=== PATIENT | female | born 1980 | race Caucasian/White ===

== ENCOUNTER → 2017-01-15 | Outpatient (CLI) | payer BC ==
[~2017-01-15] MED LIST: CHOL1CAP30 PO; FRCT/ PO; IMT100 PO; MAGN-22 PO; MAGN1250 PO; MELA1TAB4 PO; MISCCAP80 PO; PANT40TA PO; PROP20TA67 PO
== END | disposition home or self-care (01) ==
LOC: C.PAPS 11:51
PROVIDERS: ATTEND Obstetrics & Gynecology
DX: Z01.419 Encounter for gynecological examination (general) (routine) without abnormal findings (principal)

== ENCOUNTER → 2017-03-19 | Outpatient (CLI) | payer BC ==
[~2017-03-19] MED LIST changes: -CHOL1CAP30 PO; -MAGN-22 PO; -MELA1TAB4 PO; -MISCCAP80 PO; -PANT40TA PO
--- NOTE | 2017-03-19 09:10 | DIAGNOSTIC IMAGING REPORT ---
ABDOMINAL ULTRASOUND, RIGHT UPPER QUADRANT HISTORY: Early satiety. COMPARISON: None. FINDINGS: Hepatic echogenicity is increased. There are no hepatic lesions. There is no biliary ductal dilatation. The common bile duct measures 3 mm in caliber. The pancreas is sonographically normal. There is no gallbladder wall thickening. A small stone is noted within the gallbladder. There is no right hydronephrosis. IMPRESSION: 1. Fatty infiltration of the liver. 2. Small gallstone within the gallbladder. No gallbladder wall thickening. No evidence of acute cholecystitis. 3. No biliary ductal dilatation. Electronically signed by: Inder Noguera M.D. 03/19/2017 9:09 AM Dictated Date/Time: 03/19/2017 9:04 AM
== END | disposition home or self-care (01) ==
LOC: C.ULTR 08:34
PROVIDERS: ATTEND Registered Nurse
DX: R68.81 Early satiety (principal); K76.0 Fatty (change of) liver, not elsewhere classified; K80.20 Calculus of gallbladder without cholecystitis without obstruction

== ENCOUNTER → 2017-03-23 | Outpatient (CLI) | payer BC ==
[2017-03-23 17:51] LABS: BASO % 0.3 %; BASO ABS # 0.02 K/uL (0-0.2); COMPLETE YES; EOS % 3.2 %; HEMATOCRIT 39.4 % (37-47); IG% 0.2 %; LYMPH % 26.7 %; LYMPH ABS # 1.61 K/uL (1.2-3.4); MEAN CELL VOLUME 89.5 fL (80-100); MEAN CORPUSCULAR HGB CONC 33.5 g/dl (32-36); MEAN PLATELET VOLUME 9.5 fL (7.4-10.4); MONO % 5.5 %; NEUT % 64.1 %; PLATELET COUNT 244 K/uL (130-400); WHITE BLOOD COUNT 6.03 K/uL (4.8-10.8)
[2017-03-23 18:30] LABS: AMYLASE 30 U/L (25-115); AST/SGOT 11 U/L (15-37); BLOOD UREA NITROGEN 12 mg/dl (7-18); BUN/CREATININE RATIO 16.2 (10-20); C-REACTIVE PROTEIN < 0.29 mg/dl (0-0.29); CARBON DIOXIDE 30 mmol/L (21-32); CHLORIDE 102 mmol/L (98-107); CREATININE 0.71 mg/dl (0.60-1.20); GLUCOSE 86 mg/dl (70-99); POTASSIUM 4.1 mmol/L (3.5-5.1); SODIUM 139 mmol/L (136-145)
[2017-03-23 18:32] LABS: ALB/GLOB RATIO 1.1 (0.9-2); ALKALINE PHOSPHATASE 52 U/L (45-117); ALT/SGPT 25 U/L (12-78)
[2017-03-23 19:02] LABS: CALCIUM 8.9 mg/dl (8.5-10.1)
== END | disposition home or self-care (01) ==
LOC: C.LABBFT 11:46
PROVIDERS: ATTEND Registered Nurse
DX: R68.81 Early satiety (principal)

== ENCOUNTER → 2017-04-07 | Outpatient (CLI) | payer BC ==
[2017-04-07 12:54] LABS: C-REACTIVE PROTEIN < 0.29 mg/dl (0-0.29); FERRITIN 22.2 ng/ml (8.0-388.0)
== END | disposition home or self-care (01) ==
LOC: C.LAB 11:26
PROVIDERS: ATTEND Chiropractor
DX: M79.1 Myalgia (principal)

== ENCOUNTER → 2017-04-23 | Outpatient (CLI) | payer BC ==
[2017-04-23 16:23] LABS: BASO % 0.6 %; BASO ABS # 0.04 K/uL (0-0.2); COMPLETE YES; HEMATOCRIT 40.1 % (37-47); IG% 0.3 %; LYMPH % 24.2 %; LYMPH ABS # 1.56 K/uL (1.2-3.4); MEAN CELL VOLUME 90.3 fL (80-100); MEAN CORPUSCULAR HEMOGLOBIN 29.1 pg (25-34); MEAN CORPUSCULAR HGB CONC 32.2 g/dl (32-36); MEAN PLATELET VOLUME 9.5 fL (7.4-10.4); MONO % 6.1 %; NEUT % 64.8 %; PLATELET COUNT 253 K/uL (130-400); RED BLOOD COUNT 4.44 M/uL (4.2-5.4); WHITE BLOOD COUNT 6.44 K/uL (4.8-10.8)
== END | disposition home or self-care (01) ==
LOC: C.LABBFT 12:30
PROVIDERS: ATTEND Obstetrics & Gynecology
DX: N64.52 Nipple discharge (principal)

== ENCOUNTER → 2017-05-12 | Outpatient (CLI) | payer BC ==
--- NOTE | 2017-05-12 13:43 | MAMMOGRAPHY REPORT ---
BILATERAL DIGITAL DIAGNOSTIC MAMMOGRAM TOMOSYNTHESIS WITH CAD AND TARGETED BILATERAL ULTRASOUND: 2016 CLINICAL HISTORY: 36-year-old woman presented with left breast pain for approximately one month and a lso reports greenish nipple discharge that she hasn't noticed more recently. The inferior aspect of the breast was red and a little warm, and those findings have since resolved. No current palpable ma ss. No family history of discharge. Baseline mammograms. TECHNIQUE: Bilateral breast tomosynthesis in addition to standard 2D mammography was performed. Curre nt study was also evaluated with a Computer Aided Detection (CAD) system. COMPARISON: No prior exams were available for comparison. BREAST COMPOSITION: The tissue of both breasts is heterogeneously dense, which may obscure small mas ses. FINDINGS: A square shaped pain marker overlies the lower inner anterior right breast, denoting the a lety of focal pain pointed out by the patient. There is no obvious mass, architectural distortion or microcalcifications near the area of pain. No suspicious calcifications or obvious masses are identi fied in the subareolar right breast to explain the greenish nipple discharge. There are lobulated m asses in each breast, in the approximate 8:00 middle one third of the right breast measuring 9 x 15 m m, and in the upper inner far posterior left breast measuring 8 x 12 mm. Further characterization wi th ultrasound was performed. No focal area of architectural distortion or suspicious calcifications are seen bilaterally. There are a few punctate benign-appearing micro-calcifications in each upper o uter quadrant. Targeted ultrasound was performed in the area of pain and throughout the inferior right breast based on where the patient pointed out her pain and erythema. Additional targeted ultrasound was performed in the 8:00 to 9:00 right breast, periareolar/subareolar right breast and upper inner left breast. There is no evidence of a discrete solid or cystic mass to explain the pain along the inferior right breast from the 4:00 through 6:00 axes. In the 8:00 right breast, 1 cm from the nipple, there is a l obulated predominantly anechoic cystic mass with a few thin internal nonvascular septations, measurin g 14.7 x 4.1 x 7.1 mm. There is no evidence of a suspicious solid or cystic mass or intraductal mass in the periareolar/subareolar right breast to explain the nipple discharge. In the left 10:00 breas t, 12 cm from the nipple, there is a hypoechoic solid parallel macrolobulated mass measuring 12.0 x 1 0.2 x 7.9 mm. Although this most likely represents a benign fibroadenoma, given the solid nature, de finitive characterization with an ultrasound guided core biopsy is recommended to exclude the possibi lity of phyllodes. IMPRESSION: ACR BI-RADS CATEGORY 4: SUSPICIOUS, TARGETED ULTRASOUND ACR BI-RADS CATEGORY 4: SUSPICIO US 1. Left breast ultrasound guided core biopsy is recommended for a solid lobulated 14.7 mm mass in th e 10:00 axis, which could represent a fibroadenoma. 2. A lobulated mass in the 8:00 right breast correlates with a benign cyst on ultrasound. 3. There is no suspicious mammographic or targeted sonographic abnormality to explain the pain in th e lower inner and inferior right breast or to explain the greenish right nipple discharge. Clinical follow-up is recommended for possible cytologic evaluation of the nipple discharge. If it persists a nd/or increases, surgical consult may be needed. These results and recommendations were discussed with the patient at the time of the exam. Approximately 10% of breast cancers are not detected with mammography. A negative mammographic report should not delay biopsy if a clinically suggestive mass is present. Nimo Mccain M.D. ay/:05/12/2017 12:24:34 Manager Of Software Development: Veronica SATNTON)(Surehka), [facility] letter sent: Abnormal 4/5 BI-RADS Code: ACR BI-RADS Category 4: Suspicious Ultrasound BI-RADS: ACR BI-RADS Category 4: Suspici ous
== END | disposition home or self-care (01) ==
LOC: C.MAMM 10:32
PROVIDERS: ATTEND Obstetrics & Gynecology
DX: N64.4 Mastodynia (principal); N64.52 Nipple discharge; R91.8 Other nonspecific abnormal finding of lung field

== ENCOUNTER → 2017-05-28 | Outpatient (CLI) | payer BC ==
--- NOTE | 2017-05-28 11:42 | Discharge Instructions ---
Discharge Instructions Procedure Procedure Date: May 28, 2017. Reason for visit: Left Mass. Discharge Discharge Date: May 28, 2017. Discharge Diagnosis: status post breast biopsy Instructions Activity Recommendations: Additional Limitations (see below) Return to School/Work: no limitations Recommended Home Diet: No Limitations Provider Instructions: ACTIVITY RECOMMENDATIONS: * No lifting, pushing, pulling or exercising the affected side for three days. RETURN TO SCHOOL/WORK: * You may return to work/school after the procedure, but do not perform any strenuous activities for 24 to 48 hours. MEDICATIONS: * Tylenol (two 325 mg) every four to six hours if needed for mild pain (if not allergic to Tylenol). DIET: * Resume previous diet. SPECIAL CARE INSTRUCTIONS: * Keep biopsy site dry for 24 hours. May shower after 24 hours, but do not soak (bathe) incision. * May remove Tegaderm (plastic patch) tomorrow AFTER showering. * Leave the steri-strips on for one week. Allow the steri-strips to fall off by themselves. If not off after one week, you may remove them. You may place a Bandaid crosswise over the strips, if desired. * Apply ice 10 minutes on and 10 minutes off as needed. * Wear a bra at bedtime to sleep more comfortably for 2-3 days. * Your referring physician should have the results after approximately 5 to 7 business days. * Call for unusual bleeding, fever, drainage, etc or if you have any questions call during normal business hours or after hours call Dr Neves, . FOLLOW UP VISIT: Follow-up with Referring Physician as scheduled. Allergies Coded Allergies: No Known Allergies (Verified , 03/17/17) Dani Zamora Recommendations: Call your doctor if: * Temperature above 101 degrees * Pain not relieved by pain medicine ordered * There is increased drainage or redness from any incision * You have any unanswered questions or concerns. Your Doctors Instructions noted above were prepared by provider Anastasia Neves. Patient Signature Section: Patient Instructions Signature Page Leigh Ann White Patient (or Guardian) Signature/Date: I have read and understand the instructions given to me by my caregivers. Caregiver/RN/Doctor Signature/Date: The above-named patient and/or guardian has received patient instructions on this date. + Original Patient Signature Page (only) stays with chart. Please make copy for patient.
--- NOTE | 2017-05-28 14:30 | MAMMOGRAPHY REPORT ---
ULTRASOUND GUIDED BIOPSY LEFT BREAST: 05/28/2017 CLINICAL HISTORY: Left 10:00 breast mass. PATIENT CONSENT: The procedure, risks and benefits were discussed with the patient and informed writt en consent was obtained. A timeout was performed immediately prior to the procedure. PROCEDURE DESCRIPTION: With ultrasound guidance, aseptic technique, and lidocaine as the local anesth etic (1% lidocaine to anesthetize the skin and 1% lidocaine with epinephrine to anesthetize the deepe r tissues), the mass of concern in the left 10:00 breast was sampled 3 times with a 14-gauge Achieve biopsy needle. Immediately thereafter, with ultrasound guidance, aseptic technique, and lidocaine as the local anesthetic, a metallic localizer clip was placed centrally in the mass. Direct pressure w as applied to the site immediately post procedure and hemostasis was achieved. Postprocedure unilate ral mammograms were performed to confirm placement of the clip in the expected location of the breast mass. The patient tolerated the procedure without complication. She was given wound care instructi ons. The specimens were sent to pathology for analysis. COMPARISON: Comparison is made to exams dated: 05/12/2017 ultrasound and 05/12/2017 mammogram - [facility]. IMPRESSION: ULTRASOUND GUIDED BIOPSY Ultrasound-guided core needle biopsy of the left 10:00 breast mass, with clip placement. The patient will receive pathology results from her referring provider. Anastasia Neves M.D. /:05/28/2017 11:43:16 Hull Molder: Veronica STANTON)(Surekha), [facility]
--- NOTE | 2017-05-28 14:33 | MAMMOGRAPHY REPORT ---
UNILATERAL LEFT DIGITAL DIAGNOSTIC MAMMOGRAM TOMOSYNTHESIS: 05/28/2017 CLINICAL HISTORY: Status post left breast biopsy. TECHNIQUE: Breast tomosynthesis in addition to standard 2D mammography was performed. Postprocedura l left CC and ML tomosynthesis images including C views were obtained. COMPARISON: Comparison is made to exams dated: 05/12/2017 mammogram and 05/12/2017 ultrasound - [facility]. BREAST COMPOSITION: The tissue of the left breast is heterogeneously dense, which may obscure small masses. FINDINGS: A new biopsy marker clip is seen at the site of the biopsied mass in the left 10:00 breast posteriorly. No significant postbiopsy hematoma is seen. IMPRESSION: POST PROCEDURE IMAGING FOR MARKER PLACEMENT New biopsy marker clip status post ultrasound guided biopsy of a left 10:00 breast mass. Pathology r esults are pending. Approximately 10% of breast cancers are not detected with mammography. A negative mammographic report should not delay biopsy if a clinically suggestive mass is present. Anastasia Neves M.D. ah/:05/28/2017 11:49:18 Holter Scanning Technician: Veronica BABB(R)(M), [facility] [address] BI-RADS Code: Post Procedure Imaging For Marker Placement
== END | disposition home or self-care (01) ==
LOC: C.MAMM 11:08
PROVIDERS: ATTEND Obstetrics & Gynecology
DX: D24.2 Benign neoplasm of left breast (principal)

== ENCOUNTER → 2018-02-01 | Outpatient (CLI) | payer BC | END | disposition home or self-care (01) | LOC: C.PAPS 09:17 | PROVIDERS: ATTEND Obstetrics & Gynecology | DX: Z01.419 Encounter for gynecological examination (general) (routine) without abnormal findings (principal) ==

== ENCOUNTER → 2018-04-28 | Outpatient (CLI) | payer OTHER ==
--- NOTE | 2018-04-28 13:43 | DIAGNOSTIC IMAGING REPORT ---
L FOOT MIN 3 VIEWS ROUTINE CLINICAL HISTORY: 37 years-old Female presenting with M79.672 Acute foot pain, left Tenderness on the medial aspect of. TECHNIQUE: Frontal, oblique, and lateral views of the left foot were obtained. COMPARISON: None. FINDINGS: Prominent enthesophyte at the origin of the plantar fascia No acute fracture or malalignment. No advanced degenerative change. No radiographic soft tissue abnormality. IMPRESSION: 1. No acute osseous injury. 2. Prominent enthesophyte at the origin of the plantar fascia. Correlate clinically for plantar fasciitis. Electronically signed by: Omari Kaplan M.D. 04/28/2018 1:42 PM Dictated Date/Time: 04/28/2018 10:31 AM
== END | disposition home or self-care (01) ==
LOC: C.RAD1850 10:07
PROVIDERS: ATTEND Physician Assistant
DX: M77.52 Other enthesopathy of left foot and ankle (principal)